=== PATIENT | male | born 1985 | race African-American/Black ===

== ENCOUNTER 2019-06-25 07:52 | Emergency (ER) | payer OTHER ==
[~2019-06-25] VITALS: Ht 175.2 cm; Wt 99.8 kg
[~2019-06-25 07:52] MED LIST: CLARITIN10 MG PO; HYDROCODONE BIT1 T11 PO; MOTRIN800 MG PO; NKHM; NORCO 5-325 TA1 EACH PO; ROBAXIN750 MG PO; TRAMADOL HCL50 MG PO; ZITHROMAX Z PA250 MG PO
[2019-06-25] MEDS ORDERED: CEFDINIR300 MG PO (08:43)
[2019-06-25] MEDS ORDERED: TYLENOL325 M1 PO (08:43)
[2019-06-25] MEDS ORDERED: Motrin,Rufen400 MG PO (08:43)
== END 2019-06-25 08:45 | disposition home or self-care (01) ==
LOC: ED 07:52
DX: J02.0 Streptococcal pharyngitis (principal); R49.0 Dysphonia; I10 Essential (primary) hypertension; F17.200 Nicotine dependence, unspecified, uncomplicated; Z88.0 Allergy status to penicillin

== ENCOUNTER 2019-12-07 12:20 | Emergency (ER) | payer OTHER ==
[~2019-12-07] VITALS: Ht 175.2 cm; Wt 102.1 kg
[~2019-12-07 12:20] MED LIST changes: +CEFDINIR300 MG PO; +Motrin,Rufen400 MG PO; +TYLENOL325 M1 PO
[2019-12-07] MEDS ORDERED: Motrin,Rufen800 MG PO (14:59)
== END 2019-12-07 15:10 | disposition home or self-care (01) ==
LOC: ED 12:20
DX: S86.011A Strain of right Achilles tendon, initial encounter (principal); Z88.0 Allergy status to penicillin; Z79.2 Long term (current) use of antibiotics; Z79.899 Other long term (current) drug therapy; X58.XXXA Exposure to other specified factors, initial encounter; Y93.67 Activity, basketball; Y92.310 Basketball court as the place of occurrence of the external cause; Y99.8 Other external cause status

== ENCOUNTER → 2019-12-16 | Outpatient (CLI) | payer OTHER ==
[~2019-12-16] MED LIST changes: +Motrin,Rufen800 MG PO
== END | disposition home or self-care (01) ==
LOC: MRI 12:25
DX: M25.571 Pain in right ankle and joints of right foot (principal)